=== PATIENT | female | born 1955 | race African-American/Black ===

== ENCOUNTER 2019-07-16 09:03 | Emergency (ER) | payer SELFPAY ==
[~2019-07-16] VITALS: Ht 162.6 cm; Wt 124.7 kg
[2019-07-16 09:10] VITALS: BP 155/84
--- NOTE | 2019-07-16 09:10 | NUR ---
ED Nurse Note: Pt ambulated to the ED with the c/o of Dizziness for over 4-5 days, Nausea, (-) vomiting, (-) pain. Placed on bed and gown, hooked to ekg monitor.
[2019-07-16] MEDS ORDERED: ASPIR 8181 MG ORAL (09:20)
[2019-07-16] MEDS ORDERED: VITAMIN B122500 MCG PO (09:20)
--- NOTE | 2019-07-16 09:20 | NUR ---
ED Nurse Note: Pt still on stable condition. VSS, no signs of respiratory distress. EKG done.
[2019-07-16] MEDS ORDERED: Meclizine 25mg tab ORAL ONE (09:30)
[2019-07-16] MEDS ORDERED: DiphenhydrAMINE 50mg/ml Inj IVP ONE (09:30)
[2019-07-16] MEDS ORDERED: Metoclopramide 10mg/2ml Inj IVP ONE (09:30)
--- NOTE | 2019-07-16 09:30 | NUR ---
ED Nurse Note: Established IV site on LT AC with 20, intact and patent. Blood specimen collected. Pt able to urinate; obtained urine specimen, sent to labs.
[2019-07-16 09:48] LABS: BASOPHILS % (AUTO) 1.5 % (0.0-2.0); EOSINOPHILS % (AUTO) 2.5 % (0.0-3.0); HEMATOCRIT 42.7 % (37.0-47.0); HEMOGLOBIN 13.8 G/DL (12.0-16.0); LYMPHOCYTES % (AUTO) 25.5 % (20.0-45.0); MEAN CORPUSCULAR VOLUME 86 FL (80-99); MONOCYTES % (AUTO) 6.6 % (1.0-10.0); PLATELET COUNT 226 K/UL (150-450); RED BLOOD COUNT 4.94 M/UL (4.20-5.40); RED CELL DISTRIBUTION WIDTH 12.4 % (11.6-14.8); WHITE BLOOD COUNT 6.9 K/UL (4.8-10.8)
--- NOTE | 2019-07-16 09:50 | NUR ---
ED Nurse Note: Pt went to CT.
[2019-07-16 09:58] LABS: ANION GAP 9 mmol/L (5-15); BLOOD UREA NITROGEN 14 mg/dL (7-18); CALCIUM 9.5 MG/DL (8.5-10.1); CARBON DIOXIDE 27 MMOL/L (21-32); CHLORIDE 103 MMOL/L (98-107); CREATININE 0.9 MG/DL (0.55-1.30); POTASSIUM 4.4 MMOL/L (3.5-5.1); SODIUM 139 MMOL/L (136-145)
[2019-07-16 10:01] LABS: ALANINE AMINOTRANSFERASE 33 U/L (12-78); ALBUMIN 4.2 G/DL (3.4-5.0); ALBUMIN/GLOBULIN RATIO 1.1 (1.0-2.7); ALKALINE PHOSPHATASE 89 U/L (46-116); ASPARTATE AMINO TRANSFERASE 26 U/L (15-37); BILIRUBIN,TOTAL 0.5 MG/DL (0.2-1.0)
--- NOTE | 2019-07-16 10:24 | Diagnostic Imaging Report ---
EXAM: CT Head Without Intravenous Contrast CLINICAL HISTORY: DIZZY TECHNIQUE: Axial computed tomography images of the head/brain without intravenous contrast. CTDI is 62.7 mGy and DLP is 1394.9 mGy-cm. One or more of the following dose reduction techniques were used: automated exposure control, adjustment of the mA and/or kV according to patient size, use of iterative reconstruction technique. COMPARISON: None FINDINGS: Brain: No acute infarct or hemorrhage identified. No extra-axial fluid collection. No mass effect or midline shift. Scattered areas of hypoattenuation in the supratentorial white matter likely represent chronic small vessel ischemic changes. Ventricles and sulci: No ventriculomegaly. Bones: Mild hyperostosis frontalis interna. No bony lesion or fracture. Subcutaneous tissues: Normal. Sinuses: Normal. No air-fluid levels or mucosal thickening. Mastoid air cells: Normal. Orbits: Grossly unremarkable. Other: Atherosclerotic calcifications in the intracranial vasculature. IMPRESSION: 1. No acute intracranial abnormality. 2. Mild chronic small vessel ischemic changes.
[2019-07-16 10:30] VITALS: BP 97/67
--- NOTE | 2019-07-16 10:45 | NUR ---
ED Nurse Note: Pt still on stable condition, family member on bedside. IV hydration still on going on site, patent and infusing well. Pt denied pain nor feeling nauseous. Will continue to monitor.
[2019-07-16] MEDS ORDERED: MECLIZINE HCL25 MG ORAL (11:17)
[2019-07-16] MEDS ORDERED: REGLAN10 MG ORAL (11:17)
[2019-07-16 11:40] VITALS: BP 100/68
--- NOTE | 2019-07-16 11:40 | NUR ---
ER DISCHARGE NOTE: Pt is cleared to be discharged per ERMD. pt is aox4, VSS. pt was given dc and prescription instructions, pt was able to verbalize understanding, pt id band and iv site removed without complications. pt is able to ambulate with steady gait. pt took all belongings. Pt left ED with family member.
--- NOTE | 2019-07-16 12:23 | Emergency Room Report ---
History of Present Illness General Chief Complaint: Dizziness Source: Patient Present Illness HPI 63-year-old female presents ED for evaluation. Complaining of dizziness and nausea x3 days. Describes room spinning sensation. Denies photophobia. Denies headache. Denies chest pain. Worse with standing and sudden head movements. No other aggravating relieving factors. Denies any other associated symptoms Allergies: Coded Allergies: No Known Allergies (Unverified , 07/16/19) Patient History Past Medical History: other - cervical cancer Pertinent Family History: none Social History: Denies: smoking, alcohol use, drug use Now: No Immunizations: UTD Reviewed Nursing Documentation: PMH: Agreed; PSxH: Agreed Nursing Documentation-PMH Hx Cancer: Yes - CERVICAL CA, CERVICAL IMPLANT 2008 Review of Systems All Other Systems: negative except mentioned in HPI Physical Exam Vital Signs Date Time Temp Pulse Resp B/P (MAP) Pulse Ox O2 Delivery O2 Flow Rate FiO2 07/16/19 09:09 98.4 95 15 163/84 (110) 98 Room Air Sp02 EP Interpretation: reviewed, normal General Appearance: no apparent distress, alert, GCS 15, non-toxic Head: normocephalic, atraumatic Eyes: bilateral eye normal inspection, bilateral eye PERRL, bilateral eye EOMI ENT: hearing grossly normal, normal pharynx, no angioedema, normal voice Neck: full range of motion, supple/symm/no masses Respiratory: chest non-tender, lungs clear, normal breath sounds, speaking full sentences Cardiovascular #1: regular rate, rhythm, no edema Cardiovascular #2: 2+ carotid (R), 2+ carotid (L), 2+ radial (R), 2+ radial (L) , 2+ dorsalis pedis (R), 2+ dorsalis pedis (L) Gastrointestinal: normal bowel sounds, non tender, soft, non-distended, no guarding, no rebound Rectal: deferred Genitourinary: normal inspection, no CVA tenderness Musculoskeletal: back normal, normal range of motion, gait/station normal, non- tender Neurologic: alert, motor strength/tone normal, oriented x3, sensory intact, responsive, speech normal Psychiatric: judgement/insight normal, memory normal, mood/affect normal, no suicidal/homicidal ideation Reflexes: 3+ bicep (R), 3+ bicep (L), 3+ tricep (R), 3+ tricep (L), 3+ knee (R) , 3+ knee (L) Skin: no rash Lymphatic: no adenopathy Medical Decision Making Diagnostic Impression: Primary Impression: Vertigo ER Course Hospital Course 63 yo F presents to ED c/o dizziness, vomiting Differential diagnoses include: IA/unstable angina, SVT, A. fib, V. tach, CVA/ TIA, intracranial mass, vertigo Clinical course Patient placed on stretcher. on property assessment monitor. After initial history and physical I ordered labs, EKG, IVFs, CT Brain labs reviewed- no leukocytosis, hemoglobin/hematocrit stable, electrolytes okay , troponins negative EKG - NSR, no acute ischemic changes interpreted by me CT brain negative Patient symptoms relieved after meclizine, Reglan, Benadryl and IV fluids. Discussed findings with patient. No focal neurological deficits. Vitals stable. Will discharge to home. Safe for discharge. Does not have a PMD. I will provide referrals I. I feel this is a highly complex case requiring extensive working including EKG/Rhythm strip, Xray/CT/US, Blood/urine lab work, repeat exams while in ED, and administration of strong opiates/narcotics for pain control, admission to hospital or close patient follow up. Diagnosis - vertigo stable and discharged to home with prescription for meclizine, reglan. Followup with PMD. Return to ED if symptoms recur or worsen so Labs Test 07/16/19 09:30 White Blood Count 6.9 K/UL (4.8-10.8) Red Blood Count 4.94 M/UL (4.20-5.40) Hemoglobin 13.8 G/DL (12.0-16.0) Hematocrit 42.7 % (37.0-47.0) Mean Corpuscular Volume 86 FL (80-99) Mean Corpuscular Hemoglobin 28.0 PG (27.0-31.0) Mean Corpuscular Hemoglobin Concent 32.4 G/DL (32.0-36.0) Red Cell Distribution Width 12.4 % (11.6-14.8) Platelet Count 226 K/UL (150-450) Mean Platelet Volume 9.4 FL (6.5-10.1) Neutrophils (%) (Auto) 64.0 % (45.0-75.0) Lymphocytes (%) (Auto) 25.5 % (20.0-45.0) Monocytes (%) (Auto) 6.6 % (1.0-10.0) Eosinophils (%) (Auto) 2.5 % (0.0-3.0) Basophils (%) (Auto) 1.5 % (0.0-2.0) Sodium Level 139 MMOL/L (136-145) Potassium Level 4.4 MMOL/L (3.5-5.1) Chloride Level 103 MMOL/L (98-107) Carbon Dioxide Level 27 MMOL/L (21-32) Anion Gap 9 mmol/L (5-15) Blood Urea Nitrogen 14 mg/dL (7-18) Creatinine 0.9 MG/DL (0.55-1.30) Estimat Glomerular Filtration Rate > 60 mL/min (>60) Glucose Level 105 MG/DL (74-106) Calcium Level 9.5 MG/DL (8.5-10.1) Total Bilirubin 0.5 MG/DL (0.2-1.0) Aspartate Amino Transf (AST/SGOT) 26 U/L (15-37) Alanine Aminotransferase (ALT/SGPT) 33 U/L (12-78) Alkaline Phosphatase 89 U/L (46-116) Troponin I 0.000 ng/mL (0.000-0.056) Total Protein 8.0 G/DL (6.4-8.2) Albumin 4.2 G/DL (3.4-5.0) Globulin 3.8 g/dL Albumin/Globulin Ratio 1.1 (1.0-2.7) CT/MRI/US Diagnostic Results CT/MRI/US Diagnostic Results : Imaging Test Ordered: CT head Impression FINDINGS: Brain: No acute infarct or hemorrhage identified. No extra-axial fluid collection. No mass effect or midline shift. Scattered areas of hypoattenuation in the supratentorial white matter likely represent chronic small vessel ischemic changes. Ventricles and sulci: No ventriculomegaly. Bones: Mild hyperostosis frontalis interna. No bony lesion or fracture. Subcutaneous tissues: Normal. Sinuses: Normal. No air-fluid levels or mucosal thickening. Mastoid air cells: Normal. Orbits: Grossly unremarkable. Other: Atherosclerotic calcifications in the intracranial vasculature. IMPRESSION: 1. No acute intracranial abnormality. 2. Mild chronic small vessel ischemic changes. Last Vital Signs Date Time Temp Pulse Resp B/P (MAP) Pulse Ox O2 Delivery O2 Flow Rate FiO2 07/16/19 11:40 97.8 70 15 100/68 100 Room Air Status: improved Disposition: HOME, SELF-CARE Condition: Stable Scripts Meclizine Hcl* (MECLIZINE*) 25 Mg Tablet 25 MG ORAL THREE TIMES A DAY, #30 TAB Prov: Zack Marie MD 07/16/19 Metoclopramide Hcl* (REGLAN*) 10 Mg Tablet 10 MG ORAL THREE TIMES A DAY, #15 TAB Prov: Zack Marie MD 07/16/19 Referrals: NOT CHOSEN IPA/,REFERRING (PCP) [facility] Patient Instructions: Zack Lea MD Jul 16, 2019 12:23
== END 2019-07-16 11:40 | disposition home or self-care (01) ==
LOC: EMR 09:35
DX: R42 Dizziness and giddiness (principal); R11.2 Nausea with vomiting, unspecified; Z85.41 Personal history of malignant neoplasm of cervix uteri
CPT/HCPCS: 36415; 70450; 80053; 84484; 85025; 93005; 96361; 96374; 96375; 99284; J1200; J2765; J7030